=== PATIENT | male | born 1955 | race Caucasian/White ===

== ENCOUNTER 2018-01-12 07:58 | Day surgery (SDC) | payer OTHER ==
[~2018-01-12] VITALS: Ht 170.2 cm; Wt 71.7 kg
[~2018-01-12 07:58] MED LIST: AMOX500 PO; ASPI81CH PO; ATOR20 PO; BUPR150ER PO; CHLO25 PO; GABA400 PO; HYDACE5 PO; IBUP600 PO; IBUP800 PO; IRON SULFATE PO; MELO7.5 PO; NAPR550 PO; Naltrexone HCl50 MG PO; Percocet 10-321 EACH PO; Percocet 5-3251 EACH PO; Prednisone20 MG PO; RXLORA1 PO
[2018-01-12 10:59] LABS: BASOPHILS ABSOLUTE AUTO 0.05 K/mm3 (0.00-0.23); BASOPHILS PERCENT AUTO 1 % (0-2); EOSINOPHILS ABSOLUTE AUTO 0.26 K/mm3 (0.00-0.68); EOSINOPHILS PERCENT AUTO 4 % (0-6); Hematocrit 38.1 % (37.0-53.0); Hemoglobin 12.4 g/dL (13.5-17.5); IMMATURE GRAN ABSOLUTE AUTO 0.02 K/mm3 (0.00-0.10); IMMATURE GRAN PERCENT AUTO 0 % (0-1); LYMPHOCYTES ABSOLUTE AUTO 2.02 K/mm3 (0.84-5.20); LYMPHOCYTES PERCENT AUTO 28 % (21-46); MONOCYTES ABSOLUTE AUTO 0.64 K/mm3 (0.16-1.47); MONOCYTES PERCENT AUTO 9 % (4-13); Mean Corpuscular HGB 29.8 pg (26.0-34.0); Mean Corpuscular HGB Conc 32.5 g/dL (31.5-36.5); Mean Corpuscular Volume 92 fL (80-100); Mean Platelet Volume 9.2 fL (9.1-12.4); NEUTROPHILS ABSOLUTE AUTO 4.28 K/mm3 (1.96-9.15); NEUTROPHILS PERCENT AUTO 59 % (41-73); Platelet Count 347 K/mm3 (150-400); RDW Coefficient Variation 14.6 % (11.7-14.2); RDW Standard Deviation 49.2 fL (35.1-46.3); Red Blood Cell Count 4.16 M/mm3 (4.30-5.90); White Blood Cell Count 7.27 K/mm3 (4.00-11.30)
[2018-01-12 11:59] LABS: Percent Saturation 47.7 % (20.0-50.0)
== END 2018-01-12 22:51 | disposition home or self-care (01) ==
LOC: ORSCMMR 07:58 → ORD 09:00 → ORSCMMR 09:00
PROVIDERS: Internal Medicine Gastroenterology
PROC: 0DB68ZX Excision of Stomach, Via Natural or Artificial Opening Endoscopic, Diagnostic (ICD-10-PCS; principal; 2018-01-12 09:00)
PROC: 0DB98ZX Excision of Duodenum, Via Natural or Artificial Opening Endoscopic, Diagnostic (ICD-10-PCS; principal; 2018-01-12 09:00)
PROC: 0DJD8ZZ Inspection of Lower Intestinal Tract, Via Natural or Artificial Opening Endoscopic (ICD-10-PCS; 2018-01-12 09:00)
DX: D50.0 Iron deficiency anemia secondary to blood loss (chronic) (principal); K92.1 Melena; K44.9 Diaphragmatic hernia without obstruction or gangrene; Z86.010 Personal history of colon polyps; J44.9 Chronic obstructive pulmonary disease, unspecified; I10 Essential (primary) hypertension; F17.210 Nicotine dependence, cigarettes, uncomplicated; Z79.82 Long term (current) use of aspirin; Z79.899 Other long term (current) drug therapy
CPT/HCPCS: 36415; 82607; 82728; 82746; 83540; 83550; 85025; J7030

== ENCOUNTER → 2019-01-06 | Outpatient (CLI) | payer SELFPAY ==
[~2019-01-06] MED LIST changes: +AMLO5 PO; +GABA400; +Mobic15 MG PO
== END | disposition home or self-care (01) ==
LOC: LAB SHORT 19:05 → LAB EV 19:05
DX: R30.0 Dysuria (principal)
CPT/HCPCS: 87086

== ENCOUNTER 2019-10-24 15:36 | Emergency (ER) | payer OTHER ==
[~2019-10-24] VITALS: Ht 170.2 cm; Wt 68.0 kg
[2019-10-24] MEDS ORDERED: Robaxin-750750 MG PO (18:22)
[2019-10-24] MEDS ORDERED: TRAM50 PO (18:22)
[2019-10-24] MEDS ORDERED: METPRE4DP PO (18:22)
== END 2019-10-24 18:40 | disposition home or self-care (01) ==
LOC: ER 15:36
DX: M54.17 Radiculopathy, lumbosacral region (principal); G89.29 Other chronic pain; I10 Essential (primary) hypertension; J44.9 Chronic obstructive pulmonary disease, unspecified; F17.200 Nicotine dependence, unspecified, uncomplicated; Z79.899 Other long term (current) drug therapy
CPT/HCPCS: 96372; 99283-25; J1100; J1885

== ENCOUNTER 2020-07-18 15:51 | Emergency (ER) | payer OTHER ==
[~2020-07-18] VITALS: Ht 170.2 cm; Wt 68.0 kg
[~2020-07-18 15:51] MED LIST changes: +METPRE4DP PO; +Robaxin-750750 MG PO; +TRAM50 PO
== END 2020-07-18 18:58 | disposition home or self-care (01) ==
LOC: ER 15:51
DX: M54.41 Lumbago with sciatica, right side (principal); J44.9 Chronic obstructive pulmonary disease, unspecified; I10 Essential (primary) hypertension; F17.210 Nicotine dependence, cigarettes, uncomplicated; Z79.899 Other long term (current) drug therapy
CPT/HCPCS: 96372; 99283-25; A9270; J1885

== ENCOUNTER 2021-03-18 15:57 | Emergency (ER) | payer OTHER ==
[~2021-03-18] VITALS: Ht 172.7 cm; Wt 65.8 kg
[2021-03-18 17:15] LABS: BASOPHILS ABSOLUTE AUTO 0.09 K/mm3 (0.00-0.23); BASOPHILS PERCENT AUTO 1 % (0-2); EOSINOPHILS PERCENT AUTO 0 % (0-6); Hematocrit 37.7 % (37.0-53.0); Hemoglobin 12.9 g/dL (13.5-17.5); IMMATURE GRAN ABSOLUTE AUTO 0.02 K/mm3 (0.00-0.10); IMMATURE GRAN PERCENT AUTO 0 % (0-1); LYMPHOCYTES PERCENT AUTO 17 % (21-46); MONOCYTES ABSOLUTE AUTO 0.41 K/mm3 (0.16-1.47); MONOCYTES PERCENT AUTO 4 % (4-13); Mean Corpuscular HGB 30.9 pg (26.0-34.0); Mean Corpuscular HGB Conc 34.2 g/dL (31.5-36.5); Mean Corpuscular Volume 90 fL (80-100); Mean Platelet Volume 9.3 fL (9.1-12.4); NEUTROPHILS ABSOLUTE AUTO 7.52 K/mm3 (1.96-9.15); NEUTROPHILS PERCENT AUTO 78 % (41-73); Platelet Count 420 K/mm3 (150-400); RDW Coefficient Variation 14.7 % (11.7-14.2); RDW Standard Deviation 49.2 fL (35.1-46.3); Red Blood Cell Count 4.17 M/mm3 (4.30-5.90); White Blood Cell Count 9.64 K/mm3 (4.00-11.30)
[2021-03-18 17:26] LABS: Alanine Aminotransfer (ALT/SGP 51 U/L (12-78); Albumin, Blood 4.3 g/dL (3.4-5.0); Albumin/Globulin Ratio 1.2 (0.8-1.8); Alk Phos 102 U/L (50-136); Anion Gap 11 mmol/L (6-16); Aspartate Aminotrans (AST/SGOT 62 U/L (12-37); Bilirubin, Total 0.5 mg/dL (0.1-1.0); Blood Urea Nitrogen 21 mg/dL (8-24); Bun/Creatinine Ratio 20.8 (12.0-20.0); CO2, Blood 24 mmol/L (21-32); Calcium, Blood 9.5 mg/dL (8.5-10.1); Chloride, Blood 102 mmol/L (98-108); Creatinine, Blood 1.01 mg/dL (0.60-1.20); Globulin, Blood 3.7 g/dL (2.2-4.0); Glomerular Filtration Rate >60 (60-); Glucose, Blood 86 mg/dL (70-99); Potassium, Blood 4.5 mmol/L (3.5-5.5); Sodium, Blood 137 mmol/L (136-145)
[2021-03-18 17:51] LABS: Troponin I <0.015 ng/mL (0.000-0.040)
[2021-03-18] MEDS ORDERED: CHLO25 PO (20:21)
== END 2021-03-18 20:39 | disposition home or self-care (01) ==
LOC: ER 15:57
PROVIDERS: Physician Assistant
DX: F10.20 Alcohol dependence, uncomplicated (principal); M54.30 Sciatica, unspecified side; G89.29 Other chronic pain; Z79.899 Other long term (current) drug therapy; Z79.52 Long term (current) use of systemic steroids; F17.210 Nicotine dependence, cigarettes, uncomplicated
CPT/HCPCS: 36415; 80053; 84484; 85025; 93005; 93010; 96374; 99284-25; J2060